=== PATIENT | male | born 1975 | race Caucasian/White ===

== ENCOUNTER 2019-07-19 17:53 | Inpatient (IN) | payer OTHER ==
[~2019-07-19] VITALS: Ht 167.6 cm; Wt 87.5 kg
--- NOTE | 2019-07-19 18:00 | NUR ---
MONSE, FROM [facility], SENT BY PMD DUE TO HYPOKALEMIA 2.4, TO ER BED 8, HOOKED TO MONITOR, DR HAINES AT BEDSIDE
[2019-07-19] MEDS ORDERED: FEE PK DOSING 1 MIN EA MC ONE (18:02)
--- NOTE | 2019-07-19 18:09 | NUR ---
Miesha paiz in EDM - 07/19/19 at 1902 by TEE MONSE, FROM [facility], SENT BY PMD DUE TO HYPOKALEMIA 2.4, TO ER BED 8, HOOKED TO MONITOR, AWAITING MD CRAIN.
--- NOTE | 2019-07-19 18:40 | NUR ---
URINE SAMPLE SENT TO LAB
[2019-07-19 18:43] LABS: CALCIUM, SERUM 9.2 mg/dL (8.5-10.1); CARBON DIOXIDE 34 mmol/L (21-32); CHLORIDE 113 mmol/L (98-107); CREATININE 0.7 mg/dL (0.6-1.3); GLUCOSE 265 mg/dL (74-106); POTASSIUM 4.1 mmol/L (3.5-5.1); SODIUM SERUM 151 mmol/L (136-145); UREA NITROGEN, BLOOD 24 mg/dL (7-18)
[2019-07-19] MEDS ORDERED: LEVE500T9 GT (18:48)
[2019-07-19] MEDS ORDERED: METO100T14 PO (18:50)
[2019-07-19] MEDS ORDERED: MULT-439 GT (18:50)
[2019-07-19] MEDS ORDERED: TEST200V3 IM (18:50)
[2019-07-19] MEDS ORDERED: SENN-18 GT (18:50)
[2019-07-19] MEDS ORDERED: HYDR-4384 PO (18:50)
[2019-07-19] MEDS ORDERED: POTA10CA43 PO (18:50)
[2019-07-19] MEDS ORDERED: LEVO25TA7 GT (18:50)
[2019-07-19 18:54] LABS: APPEARANCE,URINE Slightly Cloudy (CLEAR); BILIRUBIN,URINE Negative (NEGATIVE); BLOOD, URINE Negative Ery/uL (NEGATIVE); COLOR,URINE Yellow (YELLOW); KETONES,URINE Negative (NEGATIVE); LEUKOCYTE ESTERASE ,URINE Negative (NEGATIVE); NITRITE, URINE Negative (NEGATIVE); PH,URINE 7.5 (5.0-8.0); PROTEIN,URINE Negative (NEGATIVE); UGLUCOSE 500 MG/DL mg/dL (NEGATIVE)
[2019-07-19] MEDS ORDERED: DESM0.2T4 PO (18:58)
[2019-07-19] MEDS ORDERED: AMLO5TAB4 GT (18:58)
[2019-07-19] MEDS ORDERED: INSU100I35 SQ (18:58)
[2019-07-19] MEDS ORDERED: HYDR10TA GT (18:58)
[2019-07-19] MEDS ORDERED: ATOR40TA GT (18:58)
[2019-07-19] MEDS ORDERED: ACET-2030 PO (18:58)
[2019-07-19] MEDS ORDERED: *INS REG3 IJ (18:58)
[2019-07-19] MEDS ORDERED: ACET-73 PO (18:58)
[2019-07-19] MEDS ORDERED: INSU100V28 IJ (18:58)
[2019-07-19] MEDS ORDERED: CLON0.1T PO (18:58)
[2019-07-19] MEDS ORDERED: CALC650T29 GT (18:58)
[2019-07-19] MEDS ORDERED: ASCO500C16 GT (18:58)
[2019-07-19] MEDS ORDERED: GLUC1KIT IJ (18:58)
[2019-07-19] MEDS ORDERED: CHOL200026 GT (18:58)
[2019-07-19 19:03] LABS: BACTERIA,URINE None seen /HPF (None Seen); RBC,URINE 0-2 /HPF (0-2); SQUAMOUS EPITHELIAL CELL,UR None Seen /HPF (None Seen)
[2019-07-19 19:04] LABS: ALANINE AMINOTRANSFERASE 75 U/L (12-78); ALBUMIN 3.2 g/dL (3.4-5.0); ALKALINE PHOSPHATASE 111 U/L (46-116); ASPARTATE AMINOTRANSFERASE 37 U/L (15-37); BILIRUBIN,DIRECT 0.3 mg/dL (0.0-0.2); BILIRUBIN,TOTAL 1.9 mg/dL (0.2-1.0); TOTAL PROTEIN, SERUM 6.2 g/dL (6.4-8.2)
[2019-07-19 19:04] LABS: MUCUS,URINE Moderate /LPF (None Seen); URINE AMORPHOUS PHOSPHATES Moderate /HPF (None Seen)
[2019-07-19 19:07] LABS: BASOPHILS # (AUTO) 0.1 /CMM (0.0-0.2); BASOPHILS % (AUTO) 0.6 % (0.0-2.0); EOSINOPHILS % (AUTO) 0.2 % (0.0-6.0); HEMATOCRIT 59 % (39-51); LYMPHOCYTES # (AUTO) 0.8 /CMM (0.8-4.8); LYMPHOCYTES % (AUTO) 8.9 % (20.0-44.0); MEAN CORPUSCULAR HGB CONC 34 g/dl (31.0-36.0); MEAN CORPUSCULAR VOLUME 104 fL (80-96); MONOCYTES # (AUTO) 0.6 /CMM (0.1-1.30); MONOCYTES % (AUTO) 6.2 % (2.0-12.0); NEUTROPHILS # (AUTO) 7.6 /CMM (1.8-8.9); NEUTROPHILS % (AUTO) 84.1 % (43.0-81.0); PLATELET COUNT (AUTO) 130 /CMM (150-450); RED BLOOD CELL COUNT(AUTO) 5.65 MIL/uL (4.5-6.0)
[2019-07-19 19:10] LABS: HEMOGLOBIN 19.9 g/dL (13.5-17.5)
[2019-07-19] MEDS ORDERED: VANCOMYCIN 1 GM VIAL ONE (19:29)
[2019-07-19] MEDS ORDERED: PIPERACILLIN /TAZOBACTAM 3.375 G VIAL IV ONE (19:29)
[2019-07-19] MEDS ORDERED: PIPERACILLIN /TAZOBACTAM 3.375 G in IV D5W 50 ML IV ONE (19:30)
[2019-07-19] MEDS ORDERED: VANCOMYCIN 1 GM in IV D5W 250 ML IV ONE (19:30)
--- NOTE | 2019-07-19 19:30 | NUR ---
REPORT GIVEN TO CHESTER ANDERSON FOR G[facility]
[2019-07-19] MEDS ORDERED: IV NS 0.9% 1,000 ML IV PRN (19:46)
[2019-07-19 19:48] LABS: BAND % (MANUAL) 1 % (0.0-5.0); LYMPHOCYTES % (MANUAL) 7 % (16-48); MONOCYTES % (MANUAL) 5 % (0-11.0); NEUTROPHILS % (MANUAL) 87 (42-76)
[2019-07-19] MEDS ORDERED: ZOLPIDEM TARTRATE 5 MG TABLET PO PRN (20:00)
[2019-07-19] MEDS ORDERED: IV NS 0.9% 1,000 ML BAG IV ONE (20:00)
[2019-07-19] MEDS ORDERED: ACETAMINOPHEN 325 MG TABLET PO PRN (20:00)
[2019-07-19] MEDS ORDERED: Z GUARD REMEDY 2 OZ OINT TP PRN (20:00)
[2019-07-19] MEDS ORDERED: HYDROCODONE/APAP 5/325MG 1 EACH TABLET PO PRN (20:00)
[2019-07-19] MEDS ORDERED: MAG HYDROX/AL HYDROX/SIMETH 30 ML UDC PO PRN (20:00)
[2019-07-19] MEDS ORDERED: ONDANSETRON HCL/PF 4 MG/2 ML VIAL IVP PRN (20:00)
[2019-07-19] MEDS ORDERED: MAGNESIUM HYDROXIDE 30 ML UDC PO PRN (20:00)
[2019-07-19] MEDS ORDERED: DEXTROSE 50%-WATER 50 ML DISP.SYRIN IV PRN (20:00)
--- NOTE | 2019-07-19 20:37 | NUR ---
BED ASSIGNMENT 102
--- NOTE | 2019-07-19 20:46 | NUR ---
CAMILO ([facility]) [phone]
--- NOTE | 2019-07-19 22:59 | NUR ---
CALLED TO UNIT FOR REPORT. NURSE WITH OTHER PT. WILL CALL BACK FOR REPORT
--- NOTE | 2019-07-19 23:54 | NUR ---
PT NOTED WITH DISLODGED GT. BALLON INTACT, MIN BLEEDING NOTED ON STOMA. MD MADE AWARE. INSERTED 18FR WITH 20CC NS. PLACEMENT VERIFIED BY AUSCULTATION.
[2019-07-20] VITALS (7 sets, daily range): BP systolic 135–155; BP diastolic 95–101
--- NOTE | 2019-07-20 | NUR ---
RN NOTE RECEIVED PATIENT FROM ER, AWAKE, NON VERBAL, RESPONSE TO TOUCH, NO RESPIRATORY DISTRESS NOTED, S/P INSERTION OF NEW G TUBE IN EMERGENCY ROOM (PER RN CHESTER), SINUS RYTHM ON THE MONITOR 84 BEATS/MINUTE, VITAL SIGNS TAKEN AND RECORDED, NPO, DX SEPSIS/PNA, ALL SAFETY MEASURES TAKEN, WILL CONTINUE TO MONITOR PATIENT
--- NOTE | 2019-07-20 00:03 | NUR ---
PT TRANSPORTED TO UNIT ON GURNEY WITH EMT AND RN AT BEDSIDE. NO DISTRESS NOTED DURING TRANSPORT.
[2019-07-20] MEDS: BLOOD SUGAR DIAGNOSTIC 1 EACH STRIP IN SCH ×5 (01:20→23:48)
--- NOTE | 2019-07-20 01:30 | NUR ---
RN NOTE CALLED DOCTOR SHIVAM, GOT AN ORDER TO RESUME FEEDING AND KUB TO CONFIRM GTUBE PLACEMENT, ADMINISTER MEDICATIONS AFTER GTUBE PLACEMENT WAS CONFIRMED
[2019-07-20] MEDS: PIPERACILLIN /TAZOBACTAM 3.375 G in IV D5W 50 ML IV SCH ×5 (01:37→23:48)
[2019-07-20] MEDS: ENOXAPARIN SODIUM 40 MG/0.4 ML DISP.SYRIN SQ SCH ×2 (01:38→21:02)
[2019-07-20] MEDS: GLUCERNA 1.2 1,000 ML BOTTLE GT PRN (02:45)
[2019-07-20] MEDS: ATORVASTATIN 40 MG TABLET GT SCH ×2 (02:46→21:04)
[2019-07-20] MEDS: LEVETIRACETAM SOL (5 ML) 100 MG/ML UDC PO SCH ×3 (02:46→21:04)
[2019-07-20] MEDS: INSULIN REGULAR, HUMAN 100 UNIT/ML 3 ML VIAL SQ PRN ×5 (02:47→23:48)
[2019-07-20] MEDS ORDERED: VANCOMYCIN 1.25 GM in IV D5W 500 ML IV SCH (05:00)
[2019-07-20 06:38] LABS: BASOPHILS % (AUTO) 0.1 % (0.0-2.0); EOSINOPHILS % (AUTO) 0.1 % (0.0-6.0); HEMATOCRIT 58 % (39-51); LYMPHOCYTES # (AUTO) 0.9 /CMM (0.8-4.8); LYMPHOCYTES % (AUTO) 10.8 % (20.0-44.0); MEAN CORPUSCULAR HGB CONC 34 g/dl (31.0-36.0); MEAN CORPUSCULAR VOLUME 104 fL (80-96); MONOCYTES # (AUTO) 0.5 /CMM (0.1-1.30); MONOCYTES % (AUTO) 5.8 % (2.0-12.0); NEUTROPHILS # (AUTO) 6.8 /CMM (1.8-8.9); NEUTROPHILS % (AUTO) 83.2 % (43.0-81.0); PLATELET COUNT (AUTO) 110 /CMM (150-450); RED BLOOD CELL COUNT(AUTO) 5.52 MIL/uL (4.5-6.0); WHITE BLOOD COUNT (AUTO) 8.2 K/uL (4.3-11.0)
[2019-07-20 06:40] LABS: HEMOGLOBIN 19.4 g/dL (13.5-17.5)
[2019-07-20 07:01] LABS: CHOLESTEROL 166 mg/dL (<200); HDL CHOLESTEROL 41 mg/dL (40-60); LDL 102 mg/dL (0-99); THYROID STIMULATING HORMONE < 0.007 uIU/mL (0.358-3.74); TRIGLYCERIDES 193 mg/dL (30-150)
--- NOTE | 2019-07-20 07:30 | NUR ---
RN NOTES RECEIVED PT IN BED, ALERT TO NAME. ON TPIECE TO 5LPM. TOLERATING WELL. ON TELE SR. GLUCERNA RUNNING AT 50 ML/HR. TOLERATING WELL. NO RESIDUAL. R HAND #20 INFUSING NS AT 100ML/HR. PT NOTED TO HAVE RED FACE/CHEST RASH EXTENDING DOWN TO UPPER ARMS AND GROIN. SAFETY MEASURES IN PLACE. WILL CONT TO MONITOR.
--- NOTE | 2019-07-20 08:06 | NUR ---
WOUND CARE CONSULT: PT PRESENTS WITH RASH AND REDNESS TO CHEST, BACK AND SHOULDER AREA WITH FACIAL REDNESS, PRESENT ON ADMISSION. DEFER TO MD FOR RASH/REDNESS. PT NOTED TO BE INCONTINENT OF URINE. RECOMMENDATIONS MADE FOR SKIN PROTECTION. DISCUSSED WITH NURSING STAFF. PT ON [place] ISOFLEX LOW AIRLOSS BED. WILL SEE PRN. MD IN AGREEMENT WITH PLAN OF CARE. Addendum: 07/20/19 at 0807 by FRANCINE SHIELDS WNDNU Amended: Links added.
[2019-07-20] MEDS: LEVOTHYROXINE SODIUM 25 MCG TABLET GT SCH (08:16)
[2019-07-20] MEDS: PANTOPRAZOLE 40 MG TABLET.DR PO SCH (08:16)
--- NOTE | 2019-07-20 08:30 | NUR ---
RN NOTES NOTIFIED DR STREET OF PT'S FACE/RASH WHILE VANCO INFUSING. MD ASSESSED PT AND DID NOT THINK IT WAS RED MAN'S SYNDROME. VS STABLE. ORDERED VANCO TO BE D/C'D PT DID NOT REQUIRE IT. WILL CONT TO MONITOR.
[2019-07-20 09:21] LABS: BAND % (MANUAL) 2 % (0.0-5.0); EOSINOPHILS % (MANUAL) 1 % (0-4); LYMPHOCYTES % (MANUAL) 8 % (16-48); MONOCYTES % (MANUAL) 2 % (0-11.0); NEUTROPHILS % (MANUAL) 87 (42-76)
[2019-07-20 10:22] LABS: B-TYPE NATRIURETIC PEPTIDE 661 PG/ML (0-125); CALCIUM, SERUM 8.2 mg/dL (8.5-10.1); CARBON DIOXIDE 27 mmol/L (21-32); CHLORIDE 113 mmol/L (98-107); CREATININE 0.6 mg/dL (0.6-1.3); GLUCOSE 214 mg/dL (74-106); PHOSPHORUS 2.9 mg/dL (2.5-4.9); SODIUM SERUM 154 mmol/L (136-145); UREA NITROGEN, BLOOD 16 mg/dL (7-18)
[2019-07-20 11:40] LABS: ABG OXYGEN SATURATION 96.8 % (92.0-98.5); ABG PCO2 33.2 mmHg (35.0-45.0); ABG PO2 89.5 mmHg (75.0-100.0); COHb 0.3 % (0.5-1.5); MetHb 0.6 % (0.0-1.5); O2Hb 95.9 % (94.0-97.0); SITE, ABG Right Radial
[2019-07-20] MEDS ORDERED: IV 1/2NS 1000 ML 1,000 ML IV ONE (12:30)
[2019-07-20] MEDS: POTASSIUM CL. PREMIX PERIPHER. 50 ML IV SCH ×5 (12:47→18:55)
[2019-07-20] MEDS ORDERED: TESTOSTERONE CYPIONATE IM SCH (13:00)
[2019-07-20] MEDS ORDERED: MISCELLANEOUS MED 1 EA EA PO PRN (13:00)
[2019-07-20] MEDS ORDERED: CLONIDINE HCL 0.1 MG TABLET PO PRN (13:00)
[2019-07-20] MEDS: CALCIUM CARBONATE 500 MG TAB.CHEW GT SCH ×2 (13:18→21:04)
[2019-07-20] MEDS: POTASSIUM CHLORIDE 10 MEQ TABLET.SA PO SCH (13:18)
[2019-07-20] MEDS: CHOLECALCIFEROL 1,000 UNIT TABLET (VIT D3) GT SCH (13:20)
[2019-07-20] MEDS: DESMOPRESSIN ACETATE 0.1 MG TABLET PO SCH (14:28)
--- NOTE | 2019-07-20 15:09 | NUR ---
PT RECEIVED TRACH'D W/ PORTEX#8 ON C/A SETUP. AMBU BAG AT BEDSIDE. EXTRA TRACH AT BEDSIDE. NO RESP DISTRESS NOTED. PT SX'D TO SMALL AMOUNTS OF THICK TURNER SECRETIONS. B/S RHONCHI/RALES BILATERALLY, EQUAL CHEST RISE NOTED. TRACH TUBE SECURE, PATENT, CLEAN AND DRY. TRACH CARE DONE, INNER CANNULA CHANGED. PLAN IS CONTINUE CURRENT CARE AND CONTINUE TO MONITOR FOR CHANGES.
--- NOTE | 2019-07-20 18:51 | NUR ---
MS RN END OF SHIFT NOTES PT IN STABLE CONDITION. ACCORDING TO PT'S FAMILY, PT HAD RASH ON CHEST AND ARMS SINCE PRIOR TO ADMISSION; AT CORRECTION WAS TREATED FUNGAL RASH. WILL ENDORSE TO PM NURSE FOR [facility].
[2019-07-20] MEDS: METOPROLOL TARTRATE 50 MG TABLET PO SCH (21:03)
[2019-07-20] MEDS: SENNOSIDES 8.6 MG TABLET GT SCH (21:05)
[2019-07-21] VITALS: BP 156/102
[2019-07-21] MEDS: GLUCERNA 1.2 1,000 ML BOTTLE GT PRN ×2 (01:12→21:03)
[2019-07-21 04:00] VITALS: BP 156/102
[2019-07-21] MEDS: PIPERACILLIN /TAZOBACTAM 3.375 G in IV D5W 50 ML IV SCH (05:49)
[2019-07-21] MEDS: CALCIUM CARBONATE 500 MG TAB.CHEW GT SCH ×3 (05:51→21:04)
[2019-07-21] MEDS: BLOOD SUGAR DIAGNOSTIC 1 EACH STRIP IN SCH ×3 (06:16→19:01)
[2019-07-21] MEDS: INSULIN REGULAR, HUMAN 100 UNIT/ML 3 ML VIAL SQ PRN ×3 (06:17→19:00)
[2019-07-21 06:28] LABS: BASOPHILS % (AUTO) 0.1 % (0.0-2.0); EOSINOPHILS % (AUTO) 0.2 % (0.0-6.0); HEMATOCRIT 52 % (39-51); HEMOGLOBIN 17.5 g/dL (13.5-17.5); LYMPHOCYTES # (AUTO) 0.8 /CMM (0.8-4.8); LYMPHOCYTES % (AUTO) 10.9 % (20.0-44.0); MEAN CORPUSCULAR HGB CONC 34 g/dl (31.0-36.0); MEAN CORPUSCULAR VOLUME 104 fL (80-96); MONOCYTES # (AUTO) 0.5 /CMM (0.1-1.30); MONOCYTES % (AUTO) 6.3 % (2.0-12.0); NEUTROPHILS % (AUTO) 82.5 % (43.0-81.0); PLATELET COUNT (AUTO) 114 /CMM (150-450); RED BLOOD CELL COUNT(AUTO) 4.95 MIL/uL (4.5-6.0); WHITE BLOOD COUNT (AUTO) 7.3 K/uL (4.3-11.0)
[2019-07-21 06:44] LABS: CREATININE 0.5 mg/dL (0.6-1.3); MAGNESIUM 2.2 mg/dL (1.8-2.4); PHOSPHORUS 2.5 mg/dL (2.5-4.9); POTASSIUM 3.3 mmol/L (3.5-5.1)
--- NOTE | 2019-07-21 07:05 | NUR ---
MS RN OPENING RECEIVED PATIENT NONVERBAL, OPENS EYES TO NAME. TRACH ATTACHED TO 5L O2. NO RESPIRATORY DISTRESS. PULSE OX ATTACHED AND AUDIBLE. SOFT BILATERAL WRIST RESTRAINTS ON D/T PATIENT PULLING AT TRACH, PER REPORT. NO S/S IMPAIRED CIRCULATION. GTF @50mL/HR. PLACEMENT CHECKED VIA AUSCULTATION AND ASPIRATION. IV SITE R HAND 20G C/D/I, SALINE LOCKED. NO S/S INFILTRATION. PATIENT UNABLE TO MAKE NEEDS KNOWN. WILL CONT TO MONITOR
[2019-07-21 08:00] VITALS: BP 149/105
[2019-07-21] MEDS: POTASSIUM CL. PREMIX PERIPHER. 50 ML IV SCH ×5 (08:22→14:31)
[2019-07-21] MEDS: POTASSIUM CHLORIDE 10 MEQ TABLET.SA PO SCH (08:22)
[2019-07-21] MEDS: LEVETIRACETAM SOL (5 ML) 100 MG/ML UDC PO SCH ×2 (08:22→21:05)
[2019-07-21] MEDS: ASCORBIC ACID 500 MG TABLET GT SCH (08:22)
[2019-07-21] MEDS: DESMOPRESSIN ACETATE 0.1 MG TABLET PO SCH (08:22)
[2019-07-21] MEDS: LEVOTHYROXINE SODIUM 25 MCG TABLET GT SCH (08:22)
[2019-07-21] MEDS: PANTOPRAZOLE 40 MG TABLET.DR PO SCH (08:22)
[2019-07-21] MEDS: METOPROLOL TARTRATE 50 MG TABLET PO SCH ×2 (08:23→21:05)
[2019-07-21] MEDS: HYDROCODONE/APAP 5/325MG 1 EACH TABLET PO SCH (08:23)
[2019-07-21] MEDS: MULTIVIT W/MINERALS 1 TAB TABLET GT SCH (08:23)
[2019-07-21] MEDS: CHOLECALCIFEROL 1,000 UNIT TABLET (VIT D3) GT SCH (08:23)
[2019-07-21] MEDS: AMLODIPINE BESYLATE 5 MG TABLET GT SCH (08:23)
[2019-07-21 08:28] LABS: BAND % (MANUAL) 2 % (0.0-5.0); LYMPHOCYTES % (MANUAL) 8 % (16-48); MONOCYTES % (MANUAL) 9 % (0-11.0); NEUTROPHILS % (MANUAL) 81 (42-76)
[2019-07-21] MEDS ORDERED: HYDROCORTISONE 10 MG TABLET GT SCH (09:00)
[2019-07-21] MEDS: PIPERACILLIN /TAZOBACTAM 3.375 G in IV D5W 100 ML IV SCH ×2 (13:05→21:14)
[2019-07-21 16:00] VITALS: BP 141/96
--- NOTE | 2019-07-21 19:00 | NUR ---
MS RN CLOSING NO SIGNIFICANT CHANGES NOTED THROUGHOUT SHIFT. ALL ORDERED MEDS GIVEN. FAMILY MEMBERS UPDATED. NO RESIDUAL NOTED, GTF RUNNING @60mL/HR. MIDLINE INSERTION COMPLETED. NO RESPIRATORY DISTRESS NOTED, PATIENT REMAINS ATTACHED TO PULSE OX + TPIECE 5L O2, ALARM AUDIBLE, REPORT GIVEN TO NOC RN FOR [facility]
--- NOTE | 2019-07-21 19:49 | NUR ---
RN INITIAL MS NOTE RECEIVED PATIENT AWAKE NONVERBAL WITH T-PIECE ATTACHED TO 5L O2. NO RESPIRATORY DISTRESS. PULSE OX ATTACHED AND AUDIBLE. SOFT BILATERAL WRIST RESTRAINTS ON D/T PATIENT PULLING AT TRACH, PER REPORT. NO S/S IMPAIRED CIRCULATION. GTF @60mL/HR, GOAL 80. PLACEMENT CHECKED VIA AUSCULTATION AND ASPIRATION. IV SITE R HAND 20G C/D/I, SALINE LOCKED. NO S/S INFILTRATION. PATIENT UNABLE TO MAKE NEEDS KNOWN. WILL CONT TO MONITOR
[2019-07-21 20:00] VITALS: BP 137/101
[2019-07-21] MEDS: ATORVASTATIN 40 MG TABLET GT SCH (21:05)
[2019-07-21] MEDS: SENNOSIDES 8.6 MG TABLET GT SCH (21:06)
[2019-07-21] MEDS: ENOXAPARIN SODIUM 40 MG/0.4 ML DISP.SYRIN SQ SCH (21:23)
[2019-07-22] MEDS: INSULIN REGULAR, HUMAN 100 UNIT/ML 3 ML VIAL SQ PRN ×5 (00:42→23:47)
[2019-07-22] MEDS: BLOOD SUGAR DIAGNOSTIC 1 EACH STRIP IN SCH ×5 (00:58→23:46)
[2019-07-22 04:47] VITALS: BP 138/94
[2019-07-22] MEDS: PIPERACILLIN /TAZOBACTAM 3.375 G in IV D5W 100 ML IV SCH ×3 (05:03→21:18)
[2019-07-22] MEDS: CALCIUM CARBONATE 500 MG TAB.CHEW GT SCH ×3 (05:03→21:14)
[2019-07-22 05:58] LABS: BASOPHILS % (AUTO) 0.2 % (0.0-2.0); EOSINOPHILS % (AUTO) 0.2 % (0.0-6.0); HEMATOCRIT 52 % (39-51); HEMOGLOBIN 17.4 g/dL (13.5-17.5); LYMPHOCYTES # (AUTO) 0.8 /CMM (0.8-4.8); LYMPHOCYTES % (AUTO) 11.8 % (20.0-44.0); MEAN CORPUSCULAR HGB CONC 34 g/dl (31.0-36.0); MEAN CORPUSCULAR VOLUME 104 fL (80-96); MONOCYTES # (AUTO) 0.5 /CMM (0.1-1.30); MONOCYTES % (AUTO) 7.1 % (2.0-12.0); NEUTROPHILS # (AUTO) 5.8 /CMM (1.8-8.9); NEUTROPHILS % (AUTO) 80.7 % (43.0-81.0); PLATELET COUNT (AUTO) 118 /CMM (150-450); RED BLOOD CELL COUNT(AUTO) 4.98 MIL/uL (4.5-6.0); WHITE BLOOD COUNT (AUTO) 7.2 K/uL (4.3-11.0)
--- NOTE | 2019-07-22 06:28 | NUR ---
RN CLOSING MS NOTE PATIENT AWAKE NONVERBAL WITH T-PIECE ATTACHED TO 5L O2. NO RESPIRATORY DISTRESS. PULSE OX ATTACHED AND AUDIBLE. SOFT BILATERAL WRIST RESTRAINTS ON D/T PATIENT PULLING AT TRACH. GTF @60mL/HR, GOAL REACHED, WELL TOLERATED. PLACEMENT CHECKED VIA AUSCULTATION AND ASPIRATION. IV SITE R HAND 20G C/D/I, SALINE LOCKED. NO S/S INFILTRATION. PATIENT UNABLE TO MAKE NEEDS KNOWN. WILL CONT TO MONITOR
[2019-07-22 06:32] LABS: CREATININE 0.7 mg/dL (0.6-1.3); MAGNESIUM 2.2 mg/dL (1.8-2.4); PHOSPHORUS 2.4 mg/dL (2.5-4.9); POTASSIUM 3.5 mmol/L (3.5-5.1)
[2019-07-22 07:00] VITALS: BP 135/91
--- NOTE | 2019-07-22 07:51 | NUR ---
MS RN NOTE PATIENT AWAKE NONVERBAL WITH T-PIECE ATTACHED TO 5L O2.TO 40% TO COOLER AEROSOL NO RESPIRATORY DISTRESS. SOFT BILATERAL WRIST RESTRAINTS ON D/T PATIENT PULLING AT TRACH. GTF @60mL/HR, WELL TOLERATED. PLACEMENT CHECKED VIA AUSCULTATION AND ASPIRATION. IV SITE LT UPPER ARM MID LINE IN PLACE C/D/I, NO S INFILTRATION. PATIENT UNABLE TO MAKE NEEDS KNOWN. WILL CONT TO MONITOR, BED IN LOWEST AND LOCKED POSITION, WILL CONT TO MONITOR CLOSELY
[2019-07-22 08:14] LABS: BAND % (MANUAL) 2 % (0.0-5.0); LYMPHOCYTES % (MANUAL) 7 % (16-48); MONOCYTES % (MANUAL) 4 % (0-11.0); NEUTROPHILS % (MANUAL) 87 (42-76)
[2019-07-22] MEDS: ASCORBIC ACID 500 MG TABLET GT SCH (08:38)
[2019-07-22] MEDS: CHOLECALCIFEROL 1,000 UNIT TABLET (VIT D3) GT SCH (08:38)
[2019-07-22] MEDS: PANTOPRAZOLE 40 MG TABLET.DR PO SCH (08:38)
[2019-07-22] MEDS: LEVETIRACETAM SOL (5 ML) 100 MG/ML UDC PO SCH ×2 (08:38→21:13)
[2019-07-22] MEDS: MULTIVIT W/MINERALS 1 TAB TABLET GT SCH (08:38)
[2019-07-22] MEDS: POTASSIUM CHLORIDE 10 MEQ TABLET.SA PO SCH (08:39)
[2019-07-22] MEDS: HYDROCODONE/APAP 5/325MG 1 EACH TABLET PO SCH (08:39)
[2019-07-22] MEDS: AMLODIPINE BESYLATE 5 MG TABLET GT SCH (08:40)
[2019-07-22] MEDS: LEVOTHYROXINE SODIUM 25 MCG TABLET GT SCH (08:41)
[2019-07-22] MEDS: DESMOPRESSIN ACETATE 0.1 MG TABLET PO SCH (08:42)
[2019-07-22] MEDS: METOPROLOL TARTRATE 50 MG TABLET PO SCH ×2 (08:42→21:14)
[2019-07-22] MEDS: IV 1/2NS 1000 ML 1,000 ML IV PRN ×2 (08:53→18:06)
--- NOTE | 2019-07-22 10:34 | NUR ---
ms ramos Partida still not available, spoke with [facility] pharmacist, will bring it will f\u
[2019-07-22] MEDS: HYDROCORTISONE 20 MG TABLET PO SCH (10:51)
[2019-07-22] MEDS ORDERED: NEUTRA PHOS 1 POWD.PACKET GT ONE (11:30)
[2019-07-22 12:00] VITALS: BP 149/98
--- NOTE | 2019-07-22 12:00 | NUR ---
MS RN NOTE TURN REPOSITION Q2 HOUR CANT ON G TUBE FEEDING ORDERED ,FAMILY AT BEDSIDE
--- NOTE | 2019-07-22 14:24 | NUR ---
MS MONICA NOTE PATIENT HAS RASHES ON CHEST AND BOTH SHOULDERS ,CALLED TO DR STREET WITH NEW ORDER TX GIVEN , ORDER CARRIED OUT Addendum: 07/22/19 at 1428 by PRISCILLA BARRY RN PER DR JAD NEGRON TO [facility] CATH
[2019-07-22] MEDS: GLUCERNA 1.2 1,000 ML BOTTLE GT PRN (14:44)
[2019-07-22 16:00] VITALS: BP 152/84
[2019-07-22] MEDS: CLOTRIMAZOLE/BETAMETASONE DIPROPIONATE 15 GM TUBE TP SCH (16:09)
[2019-07-22] MEDS ORDERED: CLOTRIMAZOLE 1% 15 GM TUBE TP SCH (17:00)
[2019-07-22] MEDS ORDERED: CLOBETASOL 0.05% CREAM 15 GM TUBE TP SCH (17:00)
--- NOTE | 2019-07-22 18:18 | NUR ---
CATALYST IMPREGNATOR NOTE CONT WITH TRACH TO T -P TO COOLER AEROSOL ,ON 10L 40%FIO2, NO SOB NOTED, WITH CONDOM CATH TO GRAVITY WITH YELLOW COLOR URINE , KEEP CLEAN DRY , KEEP HOB ELEVATED, RT UPPER ARM MID JORGE IN PLACE, CONT ON IVF ORDERED , ON G TUBE FEEDING ORDERED, WILL CONT TO MONITOR CLOSELY, WITH SOFT RESTRAIN, UNABLE TO REMOVE STILL TRYING TO REMOVE ALL LINES AND TRACH
[2019-07-22 20:00] VITALS: BP 152/90
--- NOTE | 2019-07-22 20:19 | NUR ---
RN INITIAL MS NOTE RECEIVED PATIENT AWAKE NONVERBAL WITH T-PIECE ATTACHED TO 5L O2. NO RESPIRATORY DISTRESS. PULSE OX ATTACHED AND AUDIBLE. SOFT BILATERAL WRIST RESTRAINTS ON D/T PATIENT PULLING AT TRACH, PER REPORT. NO S/S IMPAIRED CIRCULATION. GTF @60mL/HR, GOAL 60. PLACEMENT CHECKED VIA AUSCULTATION AND ASPIRATION. IV SITE R HAND 20G C/D/I, SALINE LOCKED. NO S/S INFILTRATION. PATIENT UNABLE TO MAKE NEEDS KNOWN. WILL CONT TO MONITOR NOCTURNAL O2 Q1HR.
[2019-07-22 20:22] VITALS: BP 152/90
[2019-07-22] MEDS: ENOXAPARIN SODIUM 40 MG/0.4 ML DISP.SYRIN SQ SCH (21:13)
[2019-07-22] MEDS: ATORVASTATIN 40 MG TABLET GT SCH (21:14)
[2019-07-22] MEDS: SENNOSIDES 8.6 MG TABLET GT SCH (21:14)
[2019-07-23 04:00] VITALS: BP 136/93
[2019-07-23] MEDS: CALCIUM CARBONATE 500 MG TAB.CHEW GT SCH ×3 (05:12→20:27)
[2019-07-23] MEDS: PIPERACILLIN /TAZOBACTAM 3.375 G in IV D5W 100 ML IV SCH ×3 (05:12→20:26)
[2019-07-23] MEDS: BLOOD SUGAR DIAGNOSTIC 1 EACH STRIP IN SCH ×4 (06:17→23:06)
[2019-07-23] MEDS: INSULIN REGULAR, HUMAN 100 UNIT/ML 3 ML VIAL SQ PRN ×4 (06:22→23:07)
[2019-07-23 06:45] LABS: CALCIUM, SERUM 8.4 mg/dL (8.5-10.1); CREATININE 0.6 mg/dL (0.6-1.3); POTASSIUM 2.9 mmol/L (3.5-5.1)
--- NOTE | 2019-07-23 07:00 | NUR ---
MS RN CLOSING NOTE RECEIVED PATEINT IN BED AT 0400. AROUSABLE WHEN NAME CALLED. NONVERBAL WITH T-PIECE WITH COOL AEROSOL AT 10L/MIN. RESPIRATIONS ARE EVEN AND UNLABORED. NO SIGNS OF SOB. NO MANIFESTATION OF PAIN NOTED. IN NO APPARENT DISTRESS THROUGHOUT SHIFT. IV ACCESS IN JAUN MIDLINE PATENT AND SALINE LOCKED. GTUBE IS MAINTAINED, NO RESIDUAL, POSITIVE PALCEMENT, RUNNING GLUCERNA @65ML/HR. BED IS LOW AND LOCKED, SIDE RAILS UP X2, HOB ELEVATED 40 DEGREES. ALL NURSING NEEDS MET, TURNED AND REPOSITIONED Q2HR. CALL LIGHT WITHIN REACH. WILL ENDORSE TO NEXT SHIFT FOR [facility]. Addendum: 07/23/19 at 0711 by ELHAM CARLOS RN PATIENT HAS RESTRAINTS PRESENT, MAINTAINED, REASSESSED Q2HR. NO AGITATION NOTED FROM 0400 - 0700.
[2019-07-23 07:04] LABS: BASOPHILS % (AUTO) 0.3 % (0.0-2.0); EOSINOPHILS % (AUTO) 0.3 % (0.0-6.0); HEMATOCRIT 52 % (39-51); HEMOGLOBIN 17.8 g/dL (13.5-17.5); LYMPHOCYTES # (AUTO) 0.9 /CMM (0.8-4.8); LYMPHOCYTES % (AUTO) 10.1 % (20.0-44.0); MEAN CORPUSCULAR HGB CONC 34 g/dl (31.0-36.0); MEAN CORPUSCULAR VOLUME 104 fL (80-96); MONOCYTES # (AUTO) 0.5 /CMM (0.1-1.30); MONOCYTES % (AUTO) 5.6 % (2.0-12.0); NEUTROPHILS # (AUTO) 7.5 /CMM (1.8-8.9); NEUTROPHILS % (AUTO) 83.7 % (43.0-81.0); PLATELET COUNT (AUTO) 114 /CMM (150-450); RED BLOOD CELL COUNT(AUTO) 5.06 MIL/uL (4.5-6.0)
--- NOTE | 2019-07-23 07:30 | NUR ---
INITIAL RECEIVED PATIENT AWAKE NONVERBAL WITH T-PIECE ATTACHED TO 5L O2. NO RESPIRATORY DISTRESS. PULSE OX ATTACHED AND AUDIBLE. SOFT BILATERAL WRIST RESTRAINTS ON D/T PATIENT PULLING AT TRACH, PER REPORT. NO S/S IMPAIRED CIRCULATION. GTF @60mL/HR, GOAL 60. PLACEMENT CHECKED VIA AUSCULTATION AND ASPIRATION. IV SITE R HAND 20G C/D/I, SALINE LOCKED. NO S/S INFILTRATION. PATIENT UNABLE TO MAKE NEEDS KNOWN. WILL CONT TO MONITOR NO BED IN LOW POSITION CALL MARCELINO NEXT TO PT
[2019-07-23 08:00] VITALS: BP 142/97
[2019-07-23] MEDS: POTASSIUM CL. PREMIX PERIPHER. 50 ML IV SCH ×5 (08:38→13:26)
[2019-07-23] MEDS: PANTOPRAZOLE 40 MG TABLET.DR PO SCH (08:39)
[2019-07-23] MEDS: LEVETIRACETAM SOL (5 ML) 100 MG/ML UDC PO SCH ×2 (08:39→20:27)
[2019-07-23] MEDS: HYDROCORTISONE 20 MG TABLET PO SCH (08:39)
[2019-07-23] MEDS: MULTIVIT W/MINERALS 1 TAB TABLET GT SCH (08:39)
[2019-07-23] MEDS: CHOLECALCIFEROL 1,000 UNIT TABLET (VIT D3) GT SCH (08:39)
[2019-07-23] MEDS: HYDROCODONE/APAP 5/325MG 1 EACH TABLET PO SCH (08:40)
[2019-07-23] MEDS: ASCORBIC ACID 500 MG TABLET GT SCH (08:40)
[2019-07-23] MEDS: AMLODIPINE BESYLATE 5 MG TABLET GT SCH (08:40)
[2019-07-23] MEDS: METOPROLOL TARTRATE 50 MG TABLET PO SCH ×2 (08:41→20:28)
[2019-07-23] MEDS: DESMOPRESSIN ACETATE 0.1 MG TABLET PO SCH (08:47)
[2019-07-23] MEDS: LEVOTHYROXINE SODIUM 25 MCG TABLET GT SCH (08:48)
[2019-07-23] MEDS: CLOTRIMAZOLE/BETAMETASONE DIPROPIONATE 15 GM TUBE TP SCH ×2 (08:49→16:50)
[2019-07-23] MEDS: POTASSIUM CHLORIDE 10 MEQ TABLET.SA PO SCH (08:50)
[2019-07-23 12:00] VITALS: BP 154/107
[2019-07-23 16:00] VITALS: BP 147/96
[2019-07-23] MEDS: GLUCERNA 1.2 1,000 ML BOTTLE GT PRN (16:50)
[2019-07-23] MEDS: IV 1/2NS 1000 ML 1,000 ML IV PRN (16:50)
--- NOTE | 2019-07-23 18:40 | NUR ---
CLOSING RECEIVED PATENT IN BED AT 0400. AROUSABLE WHEN NAME CALLED. NONVERBAL WITH T-PIECE WITH COOL AEROSOL AT 10L/MIN. RESPIRATIONS ARE EVEN AND UNLABORED. NO SIGNS OF SOB. NO MANIFESTATION OF PAIN NOTED. IN NO APPARENT DISTRESS THROUGHOUT SHIFT. IV ACCESS IN JAUN MIDLINE PATENT AND SALINE LOCKED. G-TUBE IS MAINTAINED, NO RESIDUAL, POSITIVE PLACEMENT, RUNNING GLUCERNA @65ML/HR. BED IS LOW AND LOCKED, SIDE RAILS UP X2, HOB ELEVATED 40 DEGREES. ALL NURSING NEEDS MET, TURNED AND REPOSITIONED Q2HR. CALL LIGHT WITHIN REACH. WILL ENDORSE TO NEXT SHIFT FOR CONTINUITY OF CARE
--- NOTE | 2019-07-23 19:10 | NUR ---
MS RN OPENING NOTES Received patient in bed, non-verbal with T-piece with cool aerosol at 10mL/min, saturating 96%. Breathing even and unlabored, not in any distress. IV access in JAUN midline, peripheral IV infusing as ordered. G-tube is maintained, running at 60mL/hr. Bilateral soft wrist restraints in place as patient is trying to pull out lines and tubes. Safety measures in place. Will continue to monitor accordingly
[2019-07-23 20:00] VITALS: BP 151/97
[2019-07-23] MEDS: ENOXAPARIN SODIUM 40 MG/0.4 ML DISP.SYRIN SQ SCH (20:24)
[2019-07-23] MEDS: ATORVASTATIN 40 MG TABLET GT SCH (21:37)
[2019-07-23] MEDS: SENNOSIDES 8.6 MG TABLET GT SCH (21:37)
--- NOTE | 2019-07-23 23:08 | NUR ---
RN NOTES BSL checked- 267mg/dL. 6 units of insulin given per sliding scale
[2019-07-24] MEDS: IV 1/2NS 1000 ML 1,000 ML IV PRN ×2 (03:02→20:16)
[2019-07-24 04:00] VITALS: BP 144/100
[2019-07-24] MEDS: CALCIUM CARBONATE 500 MG TAB.CHEW GT SCH ×3 (04:09→20:06)
[2019-07-24] MEDS: PIPERACILLIN /TAZOBACTAM 3.375 G in IV D5W 100 ML IV SCH ×3 (04:10→20:09)
[2019-07-24] MEDS: BLOOD SUGAR DIAGNOSTIC 1 EACH STRIP IN SCH ×3 (06:05→18:59)
[2019-07-24] MEDS: INSULIN REGULAR, HUMAN 100 UNIT/ML 3 ML VIAL SQ PRN ×3 (06:07→19:01)
--- NOTE | 2019-07-24 06:50 | NUR ---
MS RN CLOSING NOTES Patient in bed with head of bed elevated, non-verbal with T-piece with cool aerosol at 10mL/min, saturating 97%. Breathing even and unlabored, not in any distress. IV access in JAUN midline, peripheral IV infusing at 100mL/hr. BSL 288mg/dL, 6 units of insulin given per sliding scale. G-tube is maintained, running at 60mL/hr. Bilateral soft wrist restraints in place. Condom cath in place, draining clear yellow urine. Turned and repositioned q2h. Safety measures in place. Will endorse G[place] to oncoming RN
--- NOTE | 2019-07-24 07:30 | NUR ---
MS RN OPENING NOTES Received patient in bed, non-verbal with T-piece with cool aerosol at 10mL/min. Breathing even and unlabored, no respiratory distress or SOB noted at this time. IV access in JAUN midline, 1/2 NS running @100 ml/hr. G-tube is maintained, flushed well, residual volume 20 cc, running at 60mL/hr. Bilateral soft wrist restraints in place as patient is trying to pull out lines and tubes. Condom catheter draining to gravity yellow clear urine. Safety measures in place. Bed locked and low, side rails up x3. Will continue to monitor.
[2019-07-24 08:00] VITALS: BP 149/97
[2019-07-24] MEDS: HYDROCORTISONE 20 MG TABLET PO SCH (09:10)
[2019-07-24] MEDS: LEVOTHYROXINE SODIUM 25 MCG TABLET GT SCH (09:10)
[2019-07-24] MEDS: LEVETIRACETAM SOL (5 ML) 100 MG/ML UDC PO SCH ×2 (09:10→20:06)
[2019-07-24] MEDS: ASCORBIC ACID 500 MG TABLET GT SCH (09:11)
[2019-07-24] MEDS: CHOLECALCIFEROL 1,000 UNIT TABLET (VIT D3) GT SCH (09:11)
[2019-07-24] MEDS: PANTOPRAZOLE 40 MG TABLET.DR PO SCH (09:12)
[2019-07-24] MEDS: AMLODIPINE BESYLATE 5 MG TABLET GT SCH (09:12)
[2019-07-24] MEDS: HYDROCODONE/APAP 5/325MG 1 EACH TABLET PO SCH (09:12)
[2019-07-24] MEDS: METOPROLOL TARTRATE 50 MG TABLET PO SCH ×2 (09:13→20:07)
[2019-07-24] MEDS: DESMOPRESSIN ACETATE 0.1 MG TABLET PO SCH (09:13)
[2019-07-24] MEDS: MULTIVIT W/MINERALS 1 TAB TABLET GT SCH (09:13)
[2019-07-24] MEDS: CLOTRIMAZOLE/BETAMETASONE DIPROPIONATE 15 GM TUBE TP SCH ×2 (09:14→19:02)
[2019-07-24] MEDS: POTASSIUM CHLORIDE 10 MEQ TABLET.SA PO SCH (09:30)
[2019-07-24 11:03] LABS: BASOPHILS % (AUTO) 0.2 % (0.0-2.0); EOSINOPHILS % (AUTO) 0.4 % (0.0-6.0); HEMATOCRIT 54 % (39-51); HEMOGLOBIN 18.4 g/dL (13.5-17.5); LYMPHOCYTES # (AUTO) 0.6 /CMM (0.8-4.8); LYMPHOCYTES % (AUTO) 8.1 % (20.0-44.0); MEAN CORPUSCULAR HGB CONC 34 g/dl (31.0-36.0); MEAN CORPUSCULAR VOLUME 103 fL (80-96); MONOCYTES # (AUTO) 0.4 /CMM (0.1-1.30); MONOCYTES % (AUTO) 5.6 % (2.0-12.0); NEUTROPHILS # (AUTO) 6.7 /CMM (1.8-8.9); NEUTROPHILS % (AUTO) 85.7 % (43.0-81.0); PLATELET COUNT (AUTO) 111 /CMM (150-450); RED BLOOD CELL COUNT(AUTO) 5.25 MIL/uL (4.5-6.0); WHITE BLOOD COUNT (AUTO) 7.8 K/uL (4.3-11.0)
[2019-07-24 11:13] LABS: CALCIUM, SERUM 8.2 mg/dL (8.5-10.1); CREATININE 0.7 mg/dL (0.6-1.3); POTASSIUM 3.3 mmol/L (3.5-5.1)
[2019-07-24 11:32] LABS: LYMPHOCYTES % (MANUAL) 8 % (16-48); MONOCYTES % (MANUAL) 3 % (0-11.0); NEUTROPHILS % (MANUAL) 89 (42-76)
[2019-07-24 16:00] VITALS: BP 133/82
--- NOTE | 2019-07-24 19:56 | NUR ---
MS RN CLOSING NOTE PT RESTING COMFORTABLY. NO SIGN OF RESPIRATORY DISTRESS OR SOB AT THIS TIME. ALL NEEDS ATTENDANT. NO SIGNIFICANT CHANGE DURING THE SHIFT. SAFETY MEASURE IN PLACE. BED LOCKED AND LOW. SIDE RAILS UP X3, CALL LIGHT IN REACH. ENDORSED TO THE PM NURSE FOR [facility].
[2019-07-24 20:00] VITALS: BP 149/104
[2019-07-24] MEDS: HYDROCODONE/APAP 10/325MG 1 EA TABLET PO PRN (20:06)
[2019-07-24] MEDS: ENOXAPARIN SODIUM 40 MG/0.4 ML DISP.SYRIN SQ SCH (20:08)
[2019-07-24] MEDS: GLUCERNA 1.2 1,000 ML BOTTLE GT PRN (20:08)
[2019-07-24] MEDS: ATORVASTATIN 40 MG TABLET GT SCH (21:44)
[2019-07-24] MEDS: SENNOSIDES 8.6 MG TABLET GT SCH (21:44)
[2019-07-25] MEDS: BLOOD SUGAR DIAGNOSTIC 1 EACH STRIP IN SCH ×4 (00:37→17:22)
[2019-07-25] MEDS: INSULIN REGULAR, HUMAN 100 UNIT/ML 3 ML VIAL SQ PRN ×4 (00:40→18:49)
[2019-07-25 04:00] VITALS: BP 149/98
[2019-07-25] MEDS: PIPERACILLIN /TAZOBACTAM 3.375 G in IV D5W 100 ML IV SCH ×3 (05:00→20:34)
[2019-07-25] MEDS: IV 1/2NS 1000 ML 1,000 ML IV PRN (05:07)
[2019-07-25] MEDS: HYDROCODONE/APAP 10/325MG 1 EA TABLET PO PRN (05:08)
[2019-07-25] MEDS: CALCIUM CARBONATE 500 MG TAB.CHEW GT SCH ×3 (05:08→20:34)
[2019-07-25 07:07] LABS: BASOPHILS % (AUTO) 0.1 % (0.0-2.0); EOSINOPHILS % (AUTO) 0.5 % (0.0-6.0); HEMATOCRIT 50 % (39-51); HEMOGLOBIN 17.2 g/dL (13.5-17.5); LYMPHOCYTES # (AUTO) 0.6 /CMM (0.8-4.8); LYMPHOCYTES % (AUTO) 8.4 % (20.0-44.0); MEAN CORPUSCULAR HGB CONC 35 g/dl (31.0-36.0); MEAN CORPUSCULAR VOLUME 104 fL (80-96); MONOCYTES # (AUTO) 0.3 /CMM (0.1-1.30); MONOCYTES % (AUTO) 4.8 % (2.0-12.0); NEUTROPHILS # (AUTO) 5.9 /CMM (1.8-8.9); NEUTROPHILS % (AUTO) 86.2 % (43.0-81.0); PLATELET COUNT (AUTO) 119 /CMM (150-450); RED BLOOD CELL COUNT(AUTO) 4.81 MIL/uL (4.5-6.0); WHITE BLOOD COUNT (AUTO) 6.8 K/uL (4.3-11.0)
[2019-07-25 07:19] LABS: CALCIUM, SERUM 8.1 mg/dL (8.5-10.1); CREATININE 0.7 mg/dL (0.6-1.3)
[2019-07-25 08:00] VITALS: BP 151/107
[2019-07-25 08:40] LABS: POTASSIUM 2.7 mmol/L (3.5-5.1)
[2019-07-25] MEDS ORDERED: IV D5W 1,000 ML IV PRN (09:00)
[2019-07-25] MEDS ORDERED: INSULIN GLARGINE, 100 UNIT/ML CARTRIDGE SQ SCH (09:00)
[2019-07-25] MEDS: DESMOPRESSIN ACETATE 0.1 MG TABLET PO SCH (09:05)
[2019-07-25] MEDS: MULTIVIT W/MINERALS 1 TAB TABLET GT SCH (09:07)
[2019-07-25] MEDS: ASCORBIC ACID 500 MG TABLET GT SCH (09:07)
[2019-07-25] MEDS: POTASSIUM CHLORIDE 10 MEQ TABLET.SA PO SCH (09:07)
[2019-07-25] MEDS: LEVOTHYROXINE SODIUM 25 MCG TABLET GT SCH (09:08)
[2019-07-25] MEDS: METOPROLOL TARTRATE 50 MG TABLET PO SCH ×2 (09:08→20:34)
[2019-07-25] MEDS: PANTOPRAZOLE 40 MG TABLET.DR PO SCH (09:08)
[2019-07-25] MEDS: HYDROCODONE/APAP 5/325MG 1 EACH TABLET PO SCH (09:08)
[2019-07-25] MEDS: AMLODIPINE BESYLATE 5 MG TABLET GT SCH (09:08)
[2019-07-25] MEDS: HYDROCORTISONE 20 MG TABLET PO SCH (09:09)
[2019-07-25] MEDS: CHOLECALCIFEROL 1,000 UNIT TABLET (VIT D3) GT SCH (09:09)
[2019-07-25] MEDS: LEVETIRACETAM SOL (5 ML) 100 MG/ML UDC PO SCH ×2 (09:09→20:32)
[2019-07-25] MEDS: POTASSIUM CL. PREMIX PERIPHER. 50 ML IV SCH ×5 (09:09→13:00)
[2019-07-25] MEDS: CLOTRIMAZOLE/BETAMETASONE DIPROPIONATE 15 GM TUBE TP SCH ×2 (09:36→17:23)
[2019-07-25 11:35] LABS: EOSINOPHILS % (MANUAL) 1 % (0-4); LYMPHOCYTES % (MANUAL) 6 % (16-48); MONOCYTES % (MANUAL) 6 % (0-11.0); NEUTROPHILS % (MANUAL) 87 (42-76)
[2019-07-25 12:00] VITALS: BP 128/88
[2019-07-25] MEDS ORDERED: GLUCERNA 1.2 1,000 ML BOTTLE GT PRN (12:00)
--- NOTE | 2019-07-25 13:59 | NUR ---
MS RN NOTES 0900 INSULIN NON ADMINISTERED D5W WAS NOT AVAILABLE CALLED [employer] TO OBTAIN THE D5W.
[2019-07-25 14:43] LABS: CALCIUM, SERUM 7.9 mg/dL (8.5-10.1); CREATININE 0.6 mg/dL (0.6-1.3); POTASSIUM 3.7 mmol/L (3.5-5.1)
--- NOTE | 2019-07-25 18:30 | NUR ---
MS RN NOTES CONDOM CATHETER REMOVED.
--- NOTE | 2019-07-25 18:57 | NUR ---
MS RN NOTES LAST POTASSIUM DID NOT ADMINISTERED . POTASSIUM LEVEL 3.7 POST INFUSION.
--- NOTE | 2019-07-25 19:45 | NUR ---
MS RN NOTES PT IN BED SLEEPING ABLE TO WAKE UP WITH TOUCH . NO SOB AND DISTRESS NOTED. ALL NEEDS ATTENDED. GTUBE IS PATENT AND FLUSHED WITH WATER. SAFETY MEASURE IMPLEMENTED. CALL LIGHT WITHIN REACH. BED AT THE LOWEST POSITION. ENDORSED TO PROP AND EFFECTS DESIGNER NURSE FOR [facility].
[2019-07-25 20:00] VITALS: BP 152/88
--- NOTE | 2019-07-25 20:17 | NUR ---
MS RN NOTE REPORT GIVEN TO GLORIA AT [facility] AT 2000. MADE AWARE OF PULMONARY RECOMMENDATIONS AND POC. PATIENT ESTIMATED EXAMINATION GRADER IS 2100
[2019-07-25 20:34] VITALS: BP 152/85
[2019-07-25] MEDS: ENOXAPARIN SODIUM 40 MG/0.4 ML DISP.SYRIN SQ SCH (20:35)
--- NOTE | 2019-07-25 21:18 | NUR ---
MS RN NOTE TRANSPORTATION ARRIVED. REPORT GIVEN. TRANSFER OF CARE GIVEN OVER. PATIENT TOLERATED TRANSFER. GLORIA AT [facility] MADE AWARE. DAUGHTER MADE AWARE OF D/C. PATIENT LEAVING STABLE V/S WNL.
== END 2019-07-25 21:15 | DRG 720 ==
LOC: ER 18:01 → TELE-TD 22:39 → MEDSG1 07-20 12:22
PROVIDERS: ATTEND Internal Medicine
PROC: 05H633Z Insertion of Infusion Device into Left Subclavian Vein, Percutaneous Approach (ICD-10-PCS; principal; 2019-07-21)
DX: A41.9 Sepsis, unspecified organism (principal); Z99.11 Dependence on respirator [ventilator] status; G93.49 Other encephalopathy; J15.6 Pneumonia due to other Gram-negative bacteria; J96.11 Chronic respiratory failure with hypoxia; N17.9 Acute kidney failure, unspecified; E87.2 Acidosis; D69.6 Thrombocytopenia, unspecified; E11.22 Type 2 diabetes mellitus with diabetic chronic kidney disease; E23.0 Hypopituitarism; E87.0 Hyperosmolality and hypernatremia; I12.9 Hypertensive chronic kidney disease with stage 1 through stage 4 chronic kidney disease, or unspecified chronic kidney disease; G40.909 Epilepsy, unspecified, not intractable, without status epilepticus; N18.9 Chronic kidney disease, unspecified; E86.0 Dehydration; Z93.1 Gastrostomy status; J44.0 Chronic obstructive pulmonary disease with (acute) lower respiratory infection; E87.6 Hypokalemia; Z98.2 Presence of cerebrospinal fluid drainage device; E87.8 Other disorders of electrolyte and fluid balance, not elsewhere classified; J98.11 Atelectasis; D45 Polycythemia vera; Z79.4 Long term (current) use of insulin; R13.10 Dysphagia, unspecified; Z86.011 Personal history of benign neoplasm of the brain; E78.5 Hyperlipidemia, unspecified
CPT/HCPCS: 31720; 36415; 36569; 36600; 71045-TC; 74018; 80048-TC; 80061-TC; 80076-TC; 81000-TC; 82803-TC; 82962-TC; 83605-TC; 83735-TC; 83880; 84100-TC; 84443-TC; 84484-TC; 85025-TC; 85730-TC; 87040-TC; 87081-TC; 94640-TC; 94664-TC; 94760-TC; 94762-TC; 94799-TC; A4349; A4623; A6253; A7526; G0378; J1650; J1815; J1953; J2543; J3370; J3480; J3490; J7030; J7060; J7070